=== PATIENT | male | born 1975 | race American Indian/Alaskan Native ===

== ENCOUNTER 2016-06-12 11:00 | Emergency (ER) | payer BC ==
[2016-06-12 11:17] VITALS: BP 148/89; PULSE 60; RESP 16; TEMP 98.5; O2SAT 99
[2016-06-12] MEDS ORDERED: Fluorescein 1 mg Ophthalmic Strip OU STA (11:29)
[2016-06-12] MEDS ORDERED: Tetracaine 0.5% Ophth (OR ONLY) OU STA (11:29)
[2016-06-12] MEDS ORDERED: Fluorescein 1 mg Ophthalmic Strip ONE (11:34)
[2016-06-12] MEDS ORDERED: Tetracaine 0.5% Ophth (OR ONLY) ONE (11:35)
--- NOTE | 2016-06-12 12:27 | C.PDOC ---
History Of Present Illness 41 Y/O MALE ACCIDENTALLY POKED HIMSELF IN THE RIGHT EYE 2 DAYS AGO. PT STATES HE WAS WEARING CONTACTS AT THE TIME. PATIENT CURRENTLY C/O REDNESS, LIGHT SENSITIVITY, AND PAIN TO THE RIGHT EYE SINCE INJURY. DENIES HEADACHE, VISUAL CHANGES, FEVER, CHILLS, OR OTHER COMPLAINTS. Time Seen by Provider: 06/12/16 11:57 Chief Complaint (Nursing): Eye Problem History Per: Patient History/Exam Limitations: no limitations Onset/Duration Of Symptoms: Days Current Symptoms Are (Timing): Still Present Injury To Eye?: Yes Associated Symptoms: Pain, Discharge From Eye Recent travel outside of the [place]: No Past Medical History Reviewed: Historical Data, Nursing Documentation, Vital Signs Vital Signs: Last Vital Signs Temp 98.5 F 06/12/16 11:14 Pulse 60 06/12/16 11:14 Resp 16 06/12/16 11:14 BP 148/89 06/12/16 11:14 Pulse Ox 99 06/12/16 12:37 - Medical History PMH: No Chronic Diseases Family History: States: Unknown Family Hx - Social History Hx Alcohol Use: Yes Hx Substance Use: No - Immunization History Hx Tetanus Toxoid Vaccination: Yes Hx Influenza Vaccination: No Hx Pneumococcal Vaccination: No Review Of Systems Except As Marked, All Systems Reviewed And Found Negative. Constitutional: Negative for: Fever, Chills Eyes: Positive for: Pain, Conjunctivae Inflammation, Redness. Negative for: Vision Change ENT: Negative for: Ear Pain, Throat Pain Respiratory: Negative for: Cough Skin: Negative for: Rash Neurological: Negative for: Headache, Dizziness Physical Exam - Physical Exam Appears: Non-toxic, No Acute Distress Skin: Normal Color, Warm, Dry Head: Atraumatic, Normacephalic Eye(s): bilateral: PERRL, EOMI, right: Photophobia, Other (INJECTED, OUTER EYE ATRAUMATIC. +TEARING, WATERY. SUBCONJUNCTIVAL HEMORRHAGE.) Ear(s): Bilateral: Normal Nose: Normal Oral Mucosa: Moist Neurological/Psych: Oriented x3, Normal Speech, Normal Cognition ED Course And Treatment O2 Sat by Pulse Oximetry: 99 (RA) Pulse Ox Interpretation: Normal Disposition Counseled Patient/Family Regarding: Diagnosis, Need For Followup, Rx Given - Disposition Referrals: Betito Rain MD [Staff Provider] - Disposition: HOME/ ROUTINE Disposition Time: 12:27 Condition: IMPROVED Prescriptions: Ciprofloxacin 0.3% [Ciloxan 0.3% Ophth SOLN] 2 drop OD Q2 #1 bottle Cyclopentolate 1% [Cyclogyl 2 Ml] 2 drop OP PRN PRN #1 bottle PRN Reason: Pain, Moderate (4-7) Ibuprofen [Motrin] 600 mg PO Q6 #30 tab Instructions: Iritis (ED), Subconjunctival Hemorrhage (ED) Forms: Work Excuse - Clinical Impression Clinical Impression: Traumatic iritis, Subconjunctival hemorrhage - Scribe Statement The provider has reviewed the documentation as recorded by the Mega Gonzalez Provider Attestation: All medical record entries made by the Danitzaibcristina were at my direction and personally dictated by me. I have reviewed the chart and agree that the record accurately reflects my personal performance of the history, physical exam, medical decision making, and the department course for this patient. I have also personally directed, reviewed, and agree with the discharge instructions and disposition. Procedures - Eye Procedure Progress: TETRACAINE R EYE. FLUORESCEIN APPLIED, EYE EXAMINED WITH OROZCO LAMP. NO CORNEAL ABRASION. NO GLOBAL TRAUMA
--- NOTE | 2016-06-12 12:28 | C.PDOC ---
History Of Present Illness 41 Y/O MALE ACCIDENTALLY POKED HIMSELF IN THE RIGHT EYE 2 DAYS AGO. PT STATES HE WAS WEARING CONTACTS AT THE TIME. PATIENT CURRENTLY COMPLAINS OF REDNESS, LIGHT SENSITIVITY, AND PAIN TO THE RIGHT EYE SINCE INJURY. DENIES HEADACHE, VISUAL CHANGES, FEVER, CHILLS, OR OTHER COMPLAINTS. Time Seen by Provider: 06/12/16 11:57 Chief Complaint (Nursing): Eye Problem History Per: Patient History/Exam Limitations: no limitations Onset/Duration Of Symptoms: Days (2) Current Symptoms Are (Timing): Still Present Injury To Eye?: Yes Quality: "Pain" Wears Contact Lens?: Yes Associated Symptoms: Pain, Discharge From Eye. denies: Decreased Vision, Swelling Recent travel outside of the [place]: No Past Medical History Reviewed: Historical Data, Nursing Documentation, Vital Signs Vital Signs: Last Vital Signs Temp 98.5 F 06/12/16 11:14 Pulse 60 06/12/16 11:14 Resp 16 06/12/16 11:14 BP 148/89 06/12/16 11:14 Pulse Ox 99 06/12/16 11:14 - Medical History PMH: No Chronic Diseases Family History: States: Unknown Family Hx - Social History Hx Alcohol Use: Yes Hx Substance Use: No - Immunization History Hx Tetanus Toxoid Vaccination: Yes Hx Influenza Vaccination: No Hx Pneumococcal Vaccination: No Review Of Systems Except As Marked, All Systems Reviewed And Found Negative. Constitutional: Negative for: Fever, Chills Eyes: Positive for: Pain, Redness. Negative for: Eyelid Inflammation ENT: Negative for: Ear Pain, Throat Pain Physical Exam - Physical Exam Appears: Non-toxic, No Acute Distress Skin: Normal Color, Warm, Dry Head: Atraumatic, Normacephalic Eye(s): bilateral: PERRL, EOMI, right: Photophobia, Other (EYES INJECTED, OUTER EYE ATRAUMATIC. +TEARING. ) Ear(s): Bilateral: Normal Nose: Normal Oral Mucosa: Moist Throat: Normal, No Erythema, No Exudate Neurological/Psych: Oriented x3, Normal Speech, Normal Cognition ED Course And Treatment O2 Sat by Pulse Oximetry: 99 (RA) Pulse Ox Interpretation: Normal
[2016-06-12] MEDS ORDERED: Cyclopentolate 1% Opth (2 ml) OD STA (12:32)
== END 2016-06-12 12:53 | disposition home or self-care (01) ==
LOC: C.ER 11:00
DX: H20.9 Unspecified iridocyclitis (principal); H11.31 Conjunctival hemorrhage, right eye